=== PATIENT | female | born 2000 | race Caucasian/White ===

== ENCOUNTER 2023-08-01 14:49 | Emergency (ER) | payer MEDICAID ==
[~2023-08-01] VITALS: Ht 180.3 cm; Wt 102.1 kg
[2023-08-01 15:04] VITALS: BP 131/74; PULSE 70; RESP 16; TEMP 98.1; O2SAT 100
[2023-08-01] MEDS ORDERED: P50 MT (16:24)
[2023-08-01] MEDS ORDERED: DIPH25CA83 MT (16:24)
[2023-08-01] MEDS ORDERED: HYDR99LO MT (16:24)
[2023-08-01] MEDS ORDERED: FAMO-135 MT (16:24)
== END 2023-08-01 16:57 | disposition home or self-care (01) ==
LOC: ER 15:02
DX: L50.9 Urticaria, unspecified (principal)
CPT/HCPCS: 81025; 99283